=== PATIENT | male | born 1950 | race Two or more races ===

== ENCOUNTER 2022-09-04 23:11 | Inpatient (IN) | payer OTHER ==
[~2022-09-04] VITALS: Ht 172.7 cm; Wt 82.1 kg
--- NOTE | 2022-09-04 23:35 | NUR ---
PATIENT IS RECIEVED SAYING THAT HE HAS BEEN HAVING INTERMITTENT CHEST PAINS TODAY.
[2022-09-04] MEDS ORDERED: SYNTHROID112 MCG (23:36)
[2022-09-04] MEDS ORDERED: COZAAR50 MG (23:36)
[2022-09-05] MEDS ORDERED: OMEPRAZOLE20 MG (09:33)
[2022-09-05] MEDS ORDERED: DORZOLAMIDE-TIM10 ML OPHT (09:33)
[2022-09-05] MEDS ORDERED: ATORVASTATIN CA10 MG (09:33)
[2022-09-05] MEDS ORDERED: DORZOLAMIDE-TIM10 ML (09:34)
[2022-09-05] MEDS ORDERED: ST. JOSEPH ASPI81 M2 (09:34)
== END 2022-09-09 12:20 | DRG 282 ==
LOC: ER 23:11 → MEDJ 09-05 00:09 → ICU-2 09-05 02:32 → MEDJ 09-05 09:58
PROVIDERS: ADMIT Internal Medicine; ATTEND Internal Medicine
PROC: 4A12X4Z Monitoring of Cardiac Electrical Activity, External Approach (ICD-10-PCS; 2022-09-04)
PROC: 3E0F7SF Introduction of Other Gas into Respiratory Tract, Via Natural or Artificial Opening (ICD-10-PCS; 2022-09-04)
PROC: B246ZZZ Ultrasonography of Right and Left Heart (ICD-10-PCS; principal; 2022-09-05)
PROC: B345ZZZ Ultrasonography of Bilateral Common Carotid Arteries (ICD-10-PCS; 2022-09-05)
PROC: B348ZZZ Ultrasonography of Bilateral Internal Carotid Arteries (ICD-10-PCS; 2022-09-05)
PROC: B32TYZZ Computerized Tomography (CT Scan) of Left Pulmonary Artery using Other Contrast (ICD-10-PCS; 2022-09-05)
PROC: B32SYZZ Computerized Tomography (CT Scan) of Right Pulmonary Artery using Other Contrast (ICD-10-PCS; 2022-09-05)
DX: I21.4 Non-ST elevation (NSTEMI) myocardial infarction (principal); I77.89 Other specified disorders of arteries and arterioles; I24.9 Acute ischemic heart disease, unspecified; I10 Essential (primary) hypertension; E78.5 Hyperlipidemia, unspecified; E03.9 Hypothyroidism, unspecified; Z85.46 Personal history of malignant neoplasm of prostate; Z20.822 Contact with and (suspected) exposure to COVID-19

== ENCOUNTER 2024-03-12 14:35 | Emergency (ER) | payer OTHER ==
[~2024-03-12] VITALS: Ht 152.4 cm; Wt 93.4 kg
[~2024-03-12 14:35] MED LIST: ATORVASTATIN CA10 MG; COZAAR50 MG; DORZOLAMIDE-TIM10 ML; DORZOLAMIDE-TIM10 ML OPHT; OMEPRAZOLE20 MG; ST. JOSEPH ASPI81 M2; SYNTHROID112 MCG
[2024-03-12] MEDS ORDERED: BRILINTA60 MG PO (15:09)
[2024-03-12] MEDS ORDERED: TOPROL XL25 M1 PO (15:09)
[2024-03-12] MEDS ORDERED: FAMOTIDINE/PF 20 MG/2 ML VIAL ONE (15:44)
[2024-03-12] MEDS ORDERED: MORPHINE SULFATE 4 MG/ML VIAL IV ONE (15:45)
[2024-03-12] MEDS ORDERED: ASPIRIN 81 MG TAB.CHEW PO ONE (15:45)
[2024-03-12] MEDS ORDERED: FAMOtidine 10 MG/ML (4ML VIAL) IV ONE (15:45)
[2024-03-12] MEDS ORDERED: 0.9 % SODIUM CHLORIDE 1,000 ML IV ONE (15:45)
[2024-03-12 16:04] LABS: HEMATOCRIT 45.1 % (39.0-48.0); MEAN CELL VOLUME 85.6 fL (80.0-100.00); MEAN CORPUSCULAR HEMOGLOBIN 28.4 pg (27.00-32.0); MEAN CORPUSCULAR HGB CONC 33.2 g/dl (32.0-36.0); PLATELET COUNT 223 K/uL (150-450); RED BLOOD COUNT 5.27 M/uL (4.00-6.00); RED CELL DISTRIBUTION WIDTH 13.7 % (11.5-14.5)
[2024-03-12 16:25] LABS: INR 1.02; PARTIAL THROMBOPLASTIN TIME 31.3 SECONDS (22.0-34.0); PROTHROMBIN TIME 11.1 SECONDS (9.0-11.5)
[2024-03-12 16:31] LABS: ALBUMIN 3.8 gm/dL (3.4-5.0); BILIRUBIN TOTAL 0.98 mg/dL (0.3-1.2); CALCIUM 9.1 mg/dL (8.5-10.1); CKMB 2.7 NG/ML (0.5-3.6); CREATININE SERUM 1.05 mg/dL (0.70-1.30); GFR 68.86; GLOBULINA 3.6 G/DL (2.4-3.5); POTASSIUM 4.36 mEq/L (3.5-5.1); TOTAL PROTEIN 7.4 gm/dL (6.4-8.2)
[2024-03-12 17:05] LABS: URINE APPEARANCE Clear; URINE BILIRRUBIN Negative (NEGATIVE); URINE BLOOD Negative; URINE COLOR Yellow; URINE GLUCOSE Negative (NEGATIVE); URINE KETONE Negative (NEGATIVE); URINE LEUKOCYTE Negative; URINE NITRATE Negative; URINE PROTEIN Negative (NEGATIVE); URINE UROBILINOGEN 0.2 E.U./dl
[2024-03-12 17:09] LABS: URINE BACTERIA 11.2 uL (0.0-1933); URINE RBC 13.2 uL (0.0-20.8)
[2024-03-12 17:15] LABS: URINE EPITHELIAL CELLS 0.3 uL (0.0-38.8)
[2024-03-12 18:02] LABS: ABG PH 7.408 (7.35-7.45); ABG PO2 87.1 mmHg (80-100); BASE EXCESS -0.9 mmol/l; BICARBONATE 23.4 mmol/l (23-25); SaO2 96.7 %; Tco2 24.6 mmol/l
[2024-03-12 23:23] LABS: o2 21 %
[2024-03-12 23:24] LABS: allen test SATISFACTORY; puncture site RADIAL LEFT
== END 2024-03-12 19:31 | disposition home or self-care (01) ==
LOC: ER 14:37
PROVIDERS: General Practice
DX: I20.9 Angina pectoris, unspecified (principal); R07.89 Other chest pain; I10 Essential (primary) hypertension; E03.8 Other specified hypothyroidism
CPT/HCPCS: 36415; 51702; 71045; 82803; 93005; 93041; 94760; 96365; 96366; 99283; J2270; J3490; J7030